=== PATIENT | male | born 1945 | race Caucasian/White ===

== ENCOUNTER → 2016-12-16 | Outpatient (CLI) | payer MEDICARE, BC | LOC: GMAL 17:29 | PROVIDERS: ATTEND Family Medicine | DX: R30.0 Dysuria (principal); M54.08 Panniculitis affecting regions of neck and back, sacral and sacrococcygeal region ==

== ENCOUNTER → 2016-12-18 | Outpatient (CLI) | payer MEDICARE, BC ==
--- NOTE | 2016-12-19 09:00 | NM ---
EXAM DESCRIPTION: NM BONE SCAN WHOLE BODY CLINICAL HISTORY: 71 y/o ,M, bone scan after possible pathologic fracture of the ribs. COMPARISON: None TECHNIQUE: Whole body scintigraphic images were acquired after the IV administration of 28 mCi of technetium 99 M MDP. FINDINGS: Focal uptake noted within the left maxilla. Focal uptake noted within what is likely the anterior 3rd and 7th ribs. Focal uptake noted within the anterior left 10th rib. Abnormal uptake noted within the left hip. Abnormal uptake noted within the distal left medial tibia. Abnormal uptake noted within the lower lumbar spine most pronounced within the posterior elements. IMPRESSION: Areas of abnormal uptake noted as described above. The findings within the ribs can be seen in setting of metastatic disease as they are sporadic and not conforming to atypical fracture pattern. Recommend radiographs of the areas of concern. Electronically signed by: Angel Charlton MD 12/19/2016 08:59
== END | disposition home or self-care (01) ==
LOC: NM 09:39
PROVIDERS: ATTEND Family Medicine
DX: C90.00 Multiple myeloma not having achieved remission (principal); R07.82 Intercostal pain

== ENCOUNTER → 2017-01-14 | Outpatient (CLI) | payer MEDICARE, BC | END | disposition home or self-care (01) | LOC: LAB.O 10:43 | PROVIDERS: ATTEND Internal Medicine Medical Oncology | DX: C90.02 Multiple myeloma in relapse (principal) ==

== ENCOUNTER → 2017-02-16 | Outpatient (CLI) | payer MEDICARE, BC | END | disposition home or self-care (01) | LOC: LAB.O 14:28 | PROVIDERS: ATTEND Internal Medicine Medical Oncology | DX: C90.02 Multiple myeloma in relapse (principal) ==

== ENCOUNTER 2017-02-17 10:09 | Outpatient (CLI) | payer MEDICARE, BC ==
[2017-02-18] MEDS ORDERED: ACETAMINOPHEN 325 MG TAB ONE (09:01)
[2017-02-18] MEDS ORDERED: diphenhydrAMINE HCL 50 MG/ML VIAL ONE (09:01)
[2017-02-18] MEDS ORDERED: SODIUM CHLORIDE 0.9% 500ML 500 ML IVS ONE (09:01)
[2017-02-18 12:02] VITALS: O2SAT 95
[2017-02-18 14:15] VITALS: BP 131/72; TEMP 98.5
== END 2017-02-18 12:40 | disposition home or self-care (01) ==
LOC: AMB 10:09
PROVIDERS: ATTEND Internal Medicine Medical Oncology
DX: D64.81 Anemia due to antineoplastic chemotherapy (principal)
CPT/HCPCS: 36415; 86922; G0463; P9016

== ENCOUNTER → 2017-03-02 | Day surgery (SDC) | payer MEDICARE, BC | LOC: TXRM 14:03 | PROVIDERS: ATTEND Internal Medicine Medical Oncology | DX: D64.81 Anemia due to antineoplastic chemotherapy (principal); Z53.9 Procedure and treatment not carried out, unspecified reason ==

== ENCOUNTER 2017-03-03 05:34 | Day surgery (SDC) | payer MEDICARE, BC ==
[2017-03-03] MEDS ORDERED: SODIUM CHLORIDE 0.9% 500ML 500 ML ONE (07:29)
[2017-03-03] MEDS ORDERED: diphenhydrAMINE HCL 25 MG CAP ONE (13:11)
[2017-03-03] MEDS ORDERED: ACETAMINOPHEN 325 MG TAB ONE (13:11)
[2017-03-03] MEDS ORDERED: ACETAMINOPHEN 325 MG TAB PO ONE (13:15)
[2017-03-03] MEDS ORDERED: diphenhydrAMINE HCL 25 MG CAP PO ONE (13:16)
[2017-03-03 15:42] VITALS: O2SAT 95
[2017-03-03 16:46] VITALS: BP 111/55; TEMP 98
== END 2017-03-03 17:30 | disposition home or self-care (01) ==
LOC: AMB 05:34 → TXRM 17:30
PROVIDERS: ATTEND Internal Medicine Medical Oncology
DX: D64.81 Anemia due to antineoplastic chemotherapy (principal); C90.00 Multiple myeloma not having achieved remission; I25.10 Atherosclerotic heart disease of native coronary artery without angina pectoris; I10 Essential (primary) hypertension; Z88.8 Allergy status to other drugs, medicaments and biological substances; Z87.891 Personal history of nicotine dependence; Z85.00 Personal history of malignant neoplasm of unspecified digestive organ; Z79.82 Long term (current) use of aspirin; Z79.899 Other long term (current) drug therapy
CPT/HCPCS: 36415; 36430; 86870; 86880; 86922; 86970; G0463; J7040; P9016; Q0163

== ENCOUNTER 2017-03-06 05:55 | Outpatient (CLI) | payer MEDICARE, BC ==
[2017-03-06] MEDS ORDERED: SODIUM CHLORIDE 0.9% 500ML 500 ML ONE (11:14)
[2017-03-06] MEDS ORDERED: ACETAMINOPHEN 325 MG TAB PO ONE (11:45)
[2017-03-06] MEDS ORDERED: diphenhydrAMINE HCL 25 MG CAP PO ONE (11:45)
[2017-03-06] MEDS ORDERED: diphenhydrAMINE HCL 25 MG CAP ONE (11:50)
[2017-03-06] MEDS ORDERED: ACETAMINOPHEN 325 MG TAB ONE (11:50)
[2017-03-06 15:21] VITALS: O2SAT 96
[2017-03-06 16:05] VITALS: BP 147/79; TEMP 98.2
== END 2017-03-06 16:30 | disposition home or self-care (01) ==
LOC: TXRM 05:55 → EDSTATUS 08:00 → TXRM 16:00
PROVIDERS: ATTEND Internal Medicine Medical Oncology
PROC: 30233N1 Transfusion of Nonautologous Red Blood Cells into Peripheral Vein, Percutaneous Approach (ICD-10-PCS; principal; 2017-03-06 08:00)
DX: C90.01 Multiple myeloma in remission (principal); C80.1 Malignant (primary) neoplasm, unspecified; D63.0 Anemia in neoplastic disease
CPT/HCPCS: 36415; 36430; 86850; 86900; 86901; 86922; G0463; J7040; P9016; Q0163

== ENCOUNTER → 2017-03-10 | Outpatient (CLI) | payer MEDICARE, BC ==
--- NOTE | 2017-03-10 16:42 | MRI ---
EXAM DESCRIPTION: Lumbar Spine w/wo Contrast CLINICAL HISTORY: 71 years, Male, MULTIPLE MYELOMA COMPARISON: Bone scan December 18, 2016, MRI July 18, 2016 TECHNIQUE: Multiplanar multi sequence images of the lumbar spine were obtained with and without gadolinium contrast. FINDINGS: There are old L5 and S1 compression fractures with probable augmentation involving at least the L5 body. No additional fracture or subluxation is seen. There is no bone marrow edema. The conus lies posterior to the L1 body, and the cauda equina is unremarkable. There are large bilateral renal cysts only partially visualized. The paraspinal soft tissues are unremarkable. At L1-2, there is bilateral facet joint degeneration without ligament flavum thickening, disc bulging or stenosis. At L2-3, there is only mild concentric disc bulging with mild bilateral facet joint degeneration resulting in slight bilateral neuroforaminal stenosis. No definite nerve root abutment. At L3-4, there is mild concentric disc bulging and bilateral facet joint degeneration and ligamentum flavum thickening resulting in mild central canal and moderate bilateral neuroforaminal stenosis. Disc material approaches but does not definitely abut the exiting L3 nerve roots bilaterally. At L4-5, there is concentric disc bulging with bilateral facet joint degeneration and ligament flavum thickening resulting in moderate central canal and advanced bilateral neuroforaminal stenosis. Disc material approaches and possibly abuts the exiting L4 nerve roots bilaterally. At L5-S1, there is concentric disc bulging with bilateral facet joint degeneration resulting in severe bilateral neuroforaminal stenosis and abutment of the exiting L5 nerve roots bilaterally. Postcontrast images show a Schmorl's node in the inferior endplate of L3 peripheral enhancement. No additional enhancing bone lesion is identified. IMPRESSION: Moderate to advanced degenerative change at multiple levels in the lumbar spine including central canal stenosis, neuroforaminal stenosis and nerve root abutment as detailed above. Overall, findings are worse at L4-5 and L5-S1. Old L5 and S1 compression fractures. Large bilateral renal cysts only partially visualized. Electronically signed by: Santhosh Ro MD 03/10/2017 4:41 PM CDT
--- NOTE | 2017-03-10 16:58 | MRI ---
EXAM DESCRIPTION: Pelvis w/wo Contrast CLINICAL HISTORY: 71 years Male, MULTIPLE MYELOMA COMPARISON: None. TECHNIQUE: Multiplanar multi sequence images of the pelvis were obtained with and without contrast. FINDINGS: There is abnormal T1 and T2 bone marrow signal involving the majority of the sacrum and visualized portions of the iliac bones bilaterally. Postcontrast imaging shows heterogeneous enhancement in the same locations which could represent either neoplasm or marrow reconversion. Edema is noted at the same locations in the sacrum and bilateral iliac bones on inversion recovery imaging. There is a small defect in the anterior cortex of the left sacral wing with some enhancement in the pelvic soft tissues anterior to the defect suspicious for neoplasm with soft tissue extension. Irregular areas of decreased T1 and decreased T2 signal in the S1 body and right sacral wing are likely related to previous sacral plasty. Is a tiny matter free fluid in the pelvis, nonspecific. Is an old L5 compression fracture with vertebral plasty at the L5 level. There is a displaced S1 body fracture which is likely not acute. IMPRESSION: Abnormal, heterogeneous signal throughout the sacrum and bilateral iliac bones with enhancement and edema at the same locations, all highly suspicious for bony metastatic disease. A cortical defect anteriorly in the left sacral wing with overlying soft tissue enhancement suggests soft tissue extension. CT may be helpful for confirmation. Old L5 and S1 vertebral body fractures with vertebroplasty and sacroplasty. Electronically signed by: Santhosh Ro MD 03/10/2017 4:56 PM CDT
== END | disposition home or self-care (01) ==
LOC: MRI 12:44
PROVIDERS: ATTEND Radiology Radiation Oncology
DX: C90.01 Multiple myeloma in remission (principal)

== ENCOUNTER 2017-03-21 19:37 | Emergency (ER) | payer MEDICARE, BC ==
--- NOTE | 2017-03-21 20:10 | ED.PDOC ---
History of Present Illness - General Chief Complaint: Neuro Symptoms/Deficits Stated Complaint: general weakness, possible siezure Time Seen by Provider: 03/21/17 20:08 Source: patient, family Exam Limitations: no limitations - History of Present Illness Initial Comments: Chester Gay 71 y/o male with history of multiple myeloma undergoing chemotherapy Kyprolis the last 2 days brought by family because of weakness,low grade fever and noted hands were flapping had blank stare for about 20 minutes loss of bladder control tonight.He was started on levaquin today. Timing/Duration: 4-6 hours Severity: moderate Improving Factors: nothing Worsening Factors: nothing Associated Symptoms: loss of appetite, nausea/vomiting - x 1 Allergies/Adverse Reactions: Allergies CONTRAST DYE Allergy (Mild, Uncoded 03/21/17 20:09) Other Hacking cough, had to have a shot of benadryl Home Medications: Ambulatory Orders Tamsulosin [Flomax] 0.4 mg PO QD 11/15/12 Trazodone HCl 50 - 100 mg PO HS 04/04/13 Acyclovir [Zovirax] 400 mg PO BID 08/21/14 DULoxetine HCL [Cymbalta] 60 mg PO DAILY 08/21/14 Isosorbide Mononitrate [Imdur] 30 mg PO DAILY 08/21/14 Calcitonin ([place]) [Fortical] 200 unit PO DAILY 07/22/15 Atorvastatin Calcium [Lipitor] 80 mg PO BEDTIME 08/26/15 Daratumumab [Darzalex] 100 mg IV MONTHLY 03/21/17 Dexamethasone 4 mg PO DAILY 03/21/17 Gabapentin 300 mg PO TID 03/21/17 Levothyroxine Sodium 50 mcg PO DAILY 03/21/17 Montelukast Sodium 10 mg PO DAILY 03/21/17 Morphine Sulfate [Morphine Sulfate ER] 60 mg PO PRN PRN 03/21/17 Potassium Chloride Microencaps [Klor-Con M20] 20 meq PO DAILY 03/21/17 Potassium Chloride [Klor-Con] 03/21/17 Tbo-Filgrastim [Granix] 300 mcg SC DAILY 03/21/17 Zoledronic Acid 4 mg IV DAILY 03/21/17 Review of Systems - Review of Systems Constitutional: States: weakness EENTM: States: no symptoms reported Respiratory: States: no symptoms reported Cardiology: States: no symptoms reported Gastrointestinal/Abdominal: States: no symptoms reported Genitourinary: States: no symptoms reported Musculoskeletal: States: no symptoms reported Skin: States: no symptoms reported Neurological: States: seizure - like activity Past Medical History (General) - Patient Medical History Hx Seizures: No Hx Stroke: No Hx Asthma: No Hx of COPD: No Hx Cardiac Disorders: Yes - R CEA; cardiac stent Hx Congestive Heart Failure: No Hx Pacemaker: No Hx Hypertension: Yes Hx Diabetes: No Hx Gastroesophageal Reflux: Yes Hx Renal Disease: Yes - stones Hx Cancer: Yes - multiple mylomas Hx of HIV: Yes Hx MRSA: No MRSA Source:: nasal Surgical History: other - stem cell transplant,cardiac stent,cataract ,back - Vaccination History Hx Tetanus, Diphtheria Vaccination: Yes - 2013 Hx Influenza Vaccination: Yes Hx Pneumococcal Vaccination: Yes - Social History Hx Tobacco Use: Yes Hx Alcohol Use: Yes - several months ago Hx Substance Use: No Hx Substance Use Treatment: No Hx Depression: No Hx Physical Abuse: No Hx Emotional Abuse: No - Activities of Daily Living Patient Lives Alone: No - family Grooming Ability: Independent Eating (Feeding) Ability: Independent Toileting Ability: Independent - Female History Patient : No Family Medical History - Family History Father Family History: Unknown Living Status: Unknown Hx Family Hypertension: Yes Hx Family Cancer: Yes - stomach CA Hx Family;Other: Parkinsons disease- mom;CAD-brother Physical Exam - Physical Exam General Appearance: No apparent distress, Ill Appearing Eye Exam: bilateral normal Ears, Nose, Throat: hearing grossly normal, normal ENT inspection, normal pharynx Neck: non-tender, full range of motion Respiratory: chest non-tender, lungs clear, normal breath sounds, no respiratory distress Cardiovascular/Chest: normal peripheral pulses, regular rate, rhythm, systolic murmur - 2nd ics bilateral Peripheral Pulses: radial,right: 2+, radial,left: 2+ Gastrointestinal/Abdominal: normal bowel sounds, non tender, soft, no organomegaly, no pulsatile mass Back Exam: normal inspection, no CVA tenderness Extremity: normal range of motion, non-tender, normal inspection Neurologic: no motor/sensory deficits, alert, normal mood/affect, oriented x 3 Skin Exam: normal color, warm/dry Lymphatic: no adenopathy Progress - Results/Orders Results/Orders: Vital Signs - 8 hr 03/21/17 03/21/17 03/21/17 19:58 20:57 21:25 Temperature 100.2 F H 99.5 F 97.8 F Pulse Rate [ 94 H 82 96 H left] Respiratory 18 18 18 Rate Blood Pressure 113/71 105/66 125/77 [left] O2 Sat by Pulse 85 L 97 97 Oximetry 03/21/17 22:39 Temperature Pulse Rate [ 75 left] Respiratory 16 Rate Blood Pressure 118/76 [left] O2 Sat by Pulse 97 Oximetry 03/21/17 20:14 EKG Assessment ONCE 03/21/17 20:17 URINALYSIS Stat Laboratory Results WBC 2.4 K/mm3 (4.8-10.8) L* 03/21/17 20:13 RBC 2.79 M/mm3 (4.70-6.10) L 03/21/17 20:13 Hgb 7.8 gm/dL (14.0-18.0) L* 03/21/17 20:13 Hct 24.8 % (42.0-52.0) L 03/21/17 20:13 MCV 88.7 fl (80.0-94.0) 03/21/17 20:13 MCH 27.9 pg (27.0-31.0) 03/21/17 20:13 MCHC 31.5 g/dL (33.0-37.0) L 03/21/17 20:13 RDW 17.5 % (11.5-14.5) H 03/21/17 20:13 Plt Count 38 K/mm3 (130-400) L* 03/21/17 20:13 MPV 7.1 fl (7.40-10.4) L 03/21/17 20:13 Absolute Neuts (auto) 1.90 K/uL (1.8-6.8) 03/21/17 20:13 Absolute Lymphs (auto) 0.20 K/uL (1.0-3.4) L 03/21/17 20:13 Absolute Monos (auto) 0.30 K/uL (0.2-0.8) 03/21/17 20:13 Absolute Eos (auto) 0.00 K/uL (0.0-0.4) 03/21/17 20:13 Absolute Basos (auto) 0.00 K/uL (0.0-0.1) 03/21/17 20:13 Neutrophils % 78.8 % (42.0-78.0) H 03/21/17 20:13 Lymphocytes % 9.3 % (20.0-50.0) L 03/21/17 20:13 Monocytes % 11.6 % (2.0-9.0) H 03/21/17 20:13 Eosinophils % 0.0 % (1.0-5.0) L 03/21/17 20:13 Basophils % 0.3 % (0.0-2.0) 03/21/17 20:13 Sodium 131 mmol/L (135-145) L 03/21/17 20:13 Potassium 5.2 mmol/L (3.6-5.0) H 03/21/17 20:13 Chloride 100 mmol/L (101-111) L 03/21/17 20:13 Carbon Dioxide 22 mmol/L (21-31) 03/21/17 20:13 Anion Gap 14.2 (12-18) 03/21/17 20:13 BUN 34 mg/dL (7-18) H 03/21/17 20:13 Creatinine 2.00 mg/dL (0.6-1.3) H 03/21/17 20:13 BUN/Creatinine Ratio 17.0 (10-20) 03/21/17 20:13 Random Glucose 147 mg/dL (70-105) H 03/21/17 20:13 Serum Osmolality 273.0 mOsm/L (275-295) L 03/21/17 20:13 Uric Acid 7.2 mg/dL (2.6-7.2) 03/21/17 20:13 Calcium 9.2 mg/dL (8.4-10.2) 03/21/17 20:13 Total Bilirubin 0.5 mg/dL (0.2-1.0) 03/21/17 20:13 AST 384 IU/L (10-42) H 03/21/17 20:13 ALT 447 IU/L (10-60) H 03/21/17 20:13 Alkaline Phosphatase 90 IU/L (42-121) 03/21/17 20:13 Creatine Kinase 30 IU/L (38-174) L 03/21/17 20:13 CK-MB (CK-2) 5.5 ng/mL (0.0-4.4) H* 03/21/17 20:13 CK-MB (CK-2) % Not Reportable 03/21/17 20:13 Troponin I 0.78 ng/mL (0.01-0.05) H* 03/21/17 20:13 Serum Total Protein 7.6 gm/dL (6.4-8.2) 03/21/17 20:13 Albumin 3.1 g/dl (3.2-5.5) L 03/21/17 20:13 Globulin 4.5 gm/dL (2.3-3.5) H 03/21/17 20:13 Albumin/Globulin Ratio 0.7 (1.1-1.9) L 03/21/17 20:13 - EKG/XRAY/CT EKG: ST depression - inferior leads Comments: heart rate-83 XRAY: chest - no acute abnormality noted Departure - Departure Clinical Impression: NSTEMI (non-ST elevation myocardial infarction), Anemia due to chemotherapy, Renal failure (ARF), acute on chronic, Chemotherapy-induced thrombocytopenia, Multiple myeloma in relapse, Abnormal liver enzymes, Leukopenia due to antineoplastic chemotherapy Time of Disposition: 01:23 - Transfer to [facility] - Disposition: Transfer to Hospital Condition: Fair Departure Forms: Patient Portal Self Enrollment Referrals: Krishna White III, MD [Primary Care Provider] - 1-2 Weeks Home Medications: Ambulatory Orders Tamsulosin [Flomax] 0.4 mg PO QD 11/15/12 Trazodone HCl 50 - 100 mg PO HS 04/04/13 Acyclovir [Zovirax] 400 mg PO BID 08/21/14 DULoxetine HCL [Cymbalta] 60 mg PO DAILY 08/21/14 Isosorbide Mononitrate [Imdur] 30 mg PO DAILY 08/21/14 Calcitonin ([place]) [Fortical] 200 unit PO DAILY 07/22/15 Atorvastatin Calcium [Lipitor] 80 mg PO BEDTIME 08/26/15 Daratumumab [Darzalex] 100 mg IV MONTHLY 03/21/17 Dexamethasone 4 mg PO DAILY 03/21/17 Gabapentin 300 mg PO TID 03/21/17 Levothyroxine Sodium 50 mcg PO DAILY 03/21/17 Montelukast Sodium 10 mg PO DAILY 03/21/17 Morphine Sulfate [Morphine Sulfate ER] 60 mg PO PRN PRN 03/21/17 Potassium Chloride Microencaps [Klor-Con M20] 20 meq PO DAILY 03/21/17 Potassium Chloride [Klor-Con] 03/21/17 Tbo-Filgrastim [Granix] 300 mcg SC DAILY 03/21/17 Zoledronic Acid 4 mg IV DAILY 03/21/17
--- NOTE | 2017-03-21 20:32 | RAD ---
EXAM: Single view chest. INDICATION: Chest pain. COMPARISON: Chest x-ray: 05/21/2016. FINDINGS: Cardiac silhouette: Unremarkable. Nga: Unremarkable. Lobar consolidation: None. Pleural effusion: None. Pneumothorax: None. Other: The right chest wall port terminates within the SVC. Bones: An old healed right-sided rib fracture is again noted. Other: None. IMPRESSION: 1. No acute cardiopulmonary process. Electronically signed by: Roberto Lawrence MD 03/21/2017 8:32 PM CDT
[2017-03-21] MEDS ORDERED: SODIUM CHLORIDE 0.9% 1000ML 1,000 ML IVS PRN (22:55)
[2017-03-22 03:09] VITALS: BP 160/80; TEMP 96.6; O2SAT 98
== END 2017-03-22 02:25 | disposition short-term general hospital (02) ==
LOC: ER 19:37
DX: I21.4 Non-ST elevation (NSTEMI) myocardial infarction (principal); C90.02 Multiple myeloma in relapse; N17.9 Acute kidney failure, unspecified; D64.81 Anemia due to antineoplastic chemotherapy; D69.59 Other secondary thrombocytopenia; T45.1X5A Adverse effect of antineoplastic and immunosuppressive drugs, initial encounter; D70.1 Agranulocytosis secondary to cancer chemotherapy; B20 Human immunodeficiency virus [HIV] disease; R74.8 Abnormal levels of other serum enzymes; Z91.041 Radiographic dye allergy status; Z79.899 Other long term (current) drug therapy; K21.9 Gastro-esophageal reflux disease without esophagitis; Z98.61 Coronary angioplasty status; Z87.891 Personal history of nicotine dependence
CPT/HCPCS: 71010; 80053; 82550; 82553; 84484; 84550; 85025; 93005; J7030

== ENCOUNTER → 2017-04-09 | Outpatient (CLI) | payer MEDICARE, BC | END | disposition home or self-care (01) | LOC: LAB.O 15:16 | PROVIDERS: ATTEND Internal Medicine Medical Oncology | DX: C90.02 Multiple myeloma in relapse (principal) ==

== ENCOUNTER 2017-04-11 10:04 | Emergency (ER) | payer MEDICARE, BC ==
[2017-04-11] MEDS ORDERED: PIPERACILLIN/TAZOBACTAM 3.375 GM in SODIUM CHLORIDE 0.9% 100ML 100 ML IVPB ONE (10:11)
[2017-04-11] MEDS ORDERED: SODIUM CHLORIDE 0.9% 1000ML 1,000 ML IVS ONE (10:15)
[2017-04-11] MEDS ORDERED: SODIUM CHLORIDE 0.9% 100ML 100 ML IVPB ONE (10:17)
[2017-04-11] MEDS ORDERED: PIPERACILLIN/TAZOBACTAM 3.375 GM VIAL IVPB ONE (10:17)
--- NOTE | 2017-04-11 10:59 | CT ---
PROCEDURE: Head HISTORY: altered LOC. History of multiple myeloma Indication: Same as above Comparison: None Technique: CT of the head was done without intravenous contrast was done in axial plane only This exam was performed according to our departmental dose-optimization program, which includes automated exposure control, adjustment of the mA and/or KV according to the patient's size and/or use of iterative reconstruction technique. FINDINGS: There is no intracranial hemorrhage, midline shift mass effect or acute focal infarct. If clinical concern exists regarding an acute ischemic/vascular pathology being responsible for patient's symptomatology, an MRI of the brain is more sensitive than the current study, in ruling out such a possibility. In addition MRI is more sensitive than the current study in evaluation of metastatic disease to the brain There is good enamorado/white matter differentiation. The ventricular system is normal. The mastoid air cells are unremarkable . The paranasal sinuses show underlying changes of mild chronic sinusitis . There is no visualization of acute fractures involving the calvarium or the skull base. There is no visualization of any lytic or sclerotic lesions involving the calvarium or the skull base IMPRESSION: There is no acute intracranial abnormality. If clinical concern exists regarding an acute ischemic/vascular pathology being responsible for patient's symptomatology, an MRI of the brain is more sensitive than the current study, in ruling out such a possibility. In addition MRI is more sensitive than the current study in evaluation of metastatic disease to the brain Electronically signed by: Kaiden Herzog MD 04/11/2017 10:59 AM CDT Workstation: [id number]
--- NOTE | 2017-04-11 11:07 | RAD ---
PROCEDURE: XR CHEST 1 VIEW HISTORY: neutropenic fever COMPARISON: 03/21/2017 TECHNIQUE: Single projection of the chest was done. FINDINGS: There is no interval change in the position of the right-sided central line. There is presence of mild infiltrate/atelectasis in the right lung base . There are no pneumothoraces or pleural effusions. The pulmonary vascularity is normal. The cardiomediastinal silhouette is stable. IMPRESSION: There is presence of mild infiltrate/atelectasis in the right lung base . Electronically signed by: Kaiden Herzog MD 04/11/2017 11:06 AM CDT Workstation: [id number]
--- NOTE | 2017-04-11 11:39 | ED.PDOC ---
History of Present Illness - General Chief Complaint: Fever Stated Complaint: Fever, mild confusion Time Seen by Provider: 04/11/17 10:10 Source: patient, RN notes reviewed, Vital Signs reviewed, family, EMS Exam Limitations: no limitations Additional Information: Fever and cough since yesterday. Pt without complaints once given 2 L NC and fever improved s/p Tylenol and IV ANtibiotics. Pt's would like him transferred to [facility] for inpatient management given his history of Oncology services at [facility]. 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 Associated Symptoms: confusion - per spouse, cough Review of Systems - Review of Systems Constitutional: States: see HPI, fever EENTM: States: other - nose bleed episode Respiratory: States: see HPI, cough Cardiology: States: no symptoms reported Gastrointestinal/Abdominal: States: no symptoms reported Genitourinary: States: no symptoms reported Musculoskeletal: States: no symptoms reported Skin: States: no symptoms reported Neurological: States: no symptoms reported Endocrine: States: no symptoms reported Hematologic/Lymphatic: States: see HPI, anemia, easy bleeding Past Medical History (General) - Patient Medical History Hx Seizures: No Hx Stroke: No Hx Asthma: No Hx of COPD: No Hx Cardiac Disorders: Yes - Irregular rhythm, high cholesterol Hx Congestive Heart Failure: No Hx Pacemaker: No Hx Hypertension: Yes Hx Thyroid Disease: Yes Hx Diabetes: No Hx Gastroesophageal Reflux: Yes Hx Renal Disease: Yes - stones Hx Cancer: Yes - Multiple myeloma Hx of HIV: Yes Hx MRSA: No MRSA Source:: nasal Surgical History: tonsillectomy - Vaccination History Hx Tetanus, Diphtheria Vaccination: Yes - 2013 Hx Influenza Vaccination: Yes - 2015 Hx Pneumococcal Vaccination: Yes - Social History Hx Tobacco Use: Yes - Quit 1970 Hx Alcohol Use: Yes - several months ago Hx Substance Use: No Hx Substance Use Treatment: No Hx Depression: No Hx Physical Abuse: No Hx Emotional Abuse: No - Female History Patient : No Family Medical History - Family History Father Family History: Unknown Living Status: Unknown Hx Family Hypertension: Yes Hx Family Cancer: Yes - stomach CA Hx Family;Other: Parkinson's disease- mom;CAD-brother Physical Exam - Physical Exam General Appearance: Alert, Comfortable, No apparent distress Eye Exam: bilateral normal ENT Exam: normal ENT inspection, pharynx normal Neck: non-tender, full range of motion, supple, normal inspection Respiratory: no respiratory distress - , just occasional cough, no accessory muscle use, rales - at bilateral bases Cardiovascular/Chest: normal peripheral pulses, regular rate, rhythm, no edema, no murmur Gastrointestinal/Abdominal: non tender, soft Extremity: normal range of motion, non-tender, normal inspection Neurologic: pump attendant II-XII nml as tested, no motor/sensory deficits, alert, normal mood/affect, oriented x 3 Skin Exam: normal color Lymphatic: no adenopathy Progress - Progress Progress: 04/11/17 12:42 Pt with fever, cough since yesterday. Pt's called Oncologist on-call who recommended Tylenol and Levaquin. Fever persisted and concerned about possible change in mental status. Therefore 911 initiated and patient brought to [place] [facility]. Pt without signs of sepsis. Pt with PNA. Stable with supportive care - 2 L NC oxygen and Antibiotics. Pt's requesting transfer to [place]. I spoke with on-call Oncologist covering for Dr. Brian Loza at [phone] who stated Pt could probably be treated here at [facility]. Pt's would still like patient transferred to [facility]. 04/11/17 13:34 Case discussed with ER Attending Dr. Blanchard at [facility] who accepted transfer at 1254. - Results/Orders Results/Orders: 04/11/17 10:13 URINALYSIS Stat 04/11/17 10:29 BLOOD CULTURE Stat Laboratory Results - last 24 hr 04/11/17 04/11/17 04/11/17 10:29 10:29 10:29 WBC 4.2 L RBC 2.60 L D Hgb 7.4 L* D Hct 22.7 L D MCV 87.5 MCH 28.4 MCHC 32.7 L RDW 19.4 H Plt Count 24 L* D MPV 8.2 Absolute Neuts (auto) 3.90 Absolute Lymphs (auto) 0.10 L Absolute Monos (auto) 0.10 L Absolute Eos (auto) 0.00 Absolute Basos (auto) 0.00 Neutrophils % 94.4 H Lymphocytes % 2.1 L Monocytes % 3.1 Eosinophils % 0.3 L Basophils % 0.1 Sodium 134 L Potassium 3.9 Chloride 100 L Carbon Dioxide 30 Anion Gap 7.9 L BUN 19 H Creatinine 1.15 BUN/Creatinine Ratio 16.5 Random Glucose 110 H Serum Osmolality 271.1 L Lactic Acid 0.7 Calcium 8.7 Phosphorus 2.2 L Magnesium 1.6 L Total Bilirubin 0.9 AST 17 ALT 27 Alkaline Phosphatase 51 Serum Total Protein 5.0 L Albumin 2.6 L Globulin 2.4 Albumin/Globulin Ratio 1.1 - EKG/XRAY/CT XRAY: chest - mild infiltrate vs atelectasis right base CT: Head - no acute changes Departure - Departure Clinical Impression: Anemia associated with chemotherapy, Multiple myeloma in relapse, Chemotherapy induced thrombocytopenia Pneumonia Qualifiers: Pneumonia type: due to unspecified organism Laterality: right Lung location: unspecified part of lung Qualified Code(s): J18.9 - Pneumonia, unspecified organism Time of Disposition: 13:00 Disposition: Transfer to Hospital Condition: Fair Departure Forms: ED Discharge - Pt. Copy, Patient Portal Self Enrollment Referrals: Krishna White III, MD [Primary Care Provider] - 1-5 Days Home Medications: Ambulatory Orders Tamsulosin [Flomax] 0.4 mg PO QD 11/15/12 Trazodone HCl 50 - 100 mg PO HS 04/04/13 Acyclovir [Zovirax] 400 mg PO BID 08/21/14 DULoxetine HCL [Cymbalta] 60 mg PO DAILY 08/21/14 Isosorbide Mononitrate [Imdur] 30 mg PO DAILY 08/21/14 Calcitonin ([place]) [Fortical] 200 unit PO DAILY 07/22/15 Atorvastatin Calcium [Lipitor] 80 mg PO BEDTIME 08/26/15 Daratumumab [Darzalex] 100 mg IV MONTHLY 03/21/17 Dexamethasone 4 mg PO DAILY 03/21/17 Gabapentin 300 mg PO TID 03/21/17 Levothyroxine Sodium 50 mcg PO DAILY 03/21/17 Montelukast Sodium 10 mg PO DAILY 03/21/17 Morphine Sulfate [Morphine Sulfate ER] 60 mg PO PRN PRN 03/21/17 Potassium Chloride Microencaps [Klor-Con M20] 20 meq PO DAILY 03/21/17 Potassium Chloride [Klor-Con] 03/21/17 Tbo-Filgrastim [Granix] 300 mcg SC DAILY 03/21/17 Zoledronic Acid 4 mg IV DAILY 03/21/17 Transfer to Outside Facility - Transfer Information Accepting Provider:: Dr. Blanchard Accepting Facility: [facility] Reason for Transfer: patient's family request
[2017-04-11 15:50] VITALS: BP 141/66; TEMP 99.5; O2SAT 96
== END 2017-04-11 14:20 | disposition short-term general hospital (02) ==
LOC: ER 10:04
DX: C90.00 Multiple myeloma not having achieved remission (principal); D69.59 Other secondary thrombocytopenia; D64.81 Anemia due to antineoplastic chemotherapy; T45.1X5A Adverse effect of antineoplastic and immunosuppressive drugs, initial encounter; J18.9 Pneumonia, unspecified organism; Z87.891 Personal history of nicotine dependence; I10 Essential (primary) hypertension; E07.9 Disorder of thyroid, unspecified; K21.9 Gastro-esophageal reflux disease without esophagitis; E78.00 Pure hypercholesterolemia, unspecified; I49.9 Cardiac arrhythmia, unspecified; B20 Human immunodeficiency virus [HIV] disease
CPT/HCPCS: 36415; 70450; 71010; 80053; 83605; 83735; 84100; 85025; 87040; J2543; J7030; J7050

== ENCOUNTER 2017-04-20 12:39 | Emergency (ER) | payer MEDICARE, BC ==
[2017-04-20 13:16] VITALS: TEMP 97.8; O2SAT 99
--- NOTE | 2017-04-20 13:51 | RAD ---
EXAM DESCRIPTION: Chest,1 View CLINICAL HISTORY: 71 years Male, near syncope COMPARISON: April 11, 2017 TECHNIQUE: AP portable chest. FINDINGS: A single view of the chest demonstrates minor atelectasis in the right infrahilar region and a chemotherapy port remaining in satisfactory position. Catheter tip is in the distal superior vena cava. Heart size is normal with tortuous aorta and normal vascularity, allowing for portable technique no dense infiltrates are noted. IMPRESSION: Or platelike atelectasis in the right infrahilar region and to a lesser extent on the left. Stable position of right subclavian chemotherapy port. Electronically signed by: Sanchez Casanova MD 04/20/2017 1:50 PM CDT
--- NOTE | 2017-04-20 14:51 | ED.PDOC ---
History of Present Illness - General Chief Complaint: General Stated Complaint: SYNCOPE AT HOME, ANEMIA, CANCER Time Seen by Provider: 04/20/17 12:46 Source: patient Exam Limitations: no limitations - History of Present Illness Initial Comments: the patient is a 71-year-old male presenting to the emergency room secondary to near syncopal episodes. This is not a new problem. He does have known severe aortic stenosis and is awaiting a valve replacement. The patient was actually supposed to come up. Today to have a CBC done to see if he needs another unit of packed red blood cells. He has received frequent red blood cell transfusions in the past. Due to his dizziness and weakness the was concerned that she would not be able to bring him up here safely for the blood draw, so EMS was called. He is actually feeling in his normal state of health. He does get dizzy and weak when he stands for any period of time and also when he goes to the bathroom. he tilt positive here today which is not surprising. he just got out of the hospital 3 days ago with medication adjustments for his blood pressure management. no fevers. No chest pains. No altered mental status. No palpitations. Timing/Duration: momentarily Severity: moderate Improving Factors: immobilization Worsening Factors: movement Associated Symptoms: malaise, syncope, weakness Allergies/Adverse Reactions: Allergies CONTRAST DYE Allergy (Mild, Uncoded 04/11/17 10:20) Other Hacking cough, had to have a shot of benadryl Home Medications: Ambulatory Orders Tamsulosin [Flomax] 0.4 mg PO QD 11/15/12 Trazodone HCl 50 - 100 mg PO HS 04/04/13 Acyclovir [Zovirax] 400 mg PO BID 08/21/14 DULoxetine HCL [Cymbalta] 60 mg PO DAILY 08/21/14 Isosorbide Mononitrate [Imdur] 30 mg PO DAILY 08/21/14 Calcitonin ([place]) [Fortical] 200 unit PO DAILY 07/22/15 Atorvastatin Calcium [Lipitor] 80 mg PO BEDTIME 08/26/15 Dexamethasone 4 mg PO DAILY 03/21/17 Gabapentin 300 mg PO TID 03/21/17 Levothyroxine Sodium 50 mcg PO DAILY 03/21/17 Tbo-Filgrastim [Granix] 300 mcg SC DAILY 03/21/17 Zoledronic Acid 4 mg IV DAILY 03/21/17 Albuterol Sulfate Nebs [Proventil Nebs] 2.5 mg INH PRN PRN 04/11/17 Calcium Carbonate-Cholecalcife [Caltrate 600+D] 1 tab PO BEDTIME 04/11/17 Cholecalciferol [Eql Vitamin D3] 1,000 unit PO DAILY 04/11/17 Clonidine HCl 0.1 mg PO TID 04/11/17 Cyanocobalamin [Vitamin B-12] 1,000 mcg SL DAILY 04/11/17 Furosemide 20 mg PO DAILY 04/11/17 Isosorbide Mononitrate [Isosorbide Mononitrate ER] 30 mg PO DAILY 04/11/17 Magnesium Oxide (mg Supplement [Magnesium Oxide] 400 mg PO DAILY 04/11/17 hydrALAZINE HCl [(None)] 25 mg PO TID 04/11/17 Doxycycline (Monohydrate) [Doxycycline Monohydrate] 100 mg PO 04/20/17 Hydrocortisone 25 mg Supp [Anusol-HC Suppository] 04/20/17 Prednisone [Deltasone] 20 mg PO 04/20/17 Review of Systems - Review of Systems Constitutional: States: malaise, weakness EENTM: States: no symptoms reported Respiratory: States: no symptoms reported, short of breath - with activity Cardiology: States: syncope - near syncope Gastrointestinal/Abdominal: States: no symptoms reported Genitourinary: States: no symptoms reported Musculoskeletal: States: no symptoms reported Skin: States: no symptoms reported Neurological: States: other - dizziness Endocrine: States: no symptoms reported All other Systems: No Change from Baseline Past Medical History (General) - Patient Medical History Hx Seizures: No Hx Stroke: No Hx Dementia: No Hx Asthma: No Hx of COPD: No Hx Cardiac Disorders: Yes Hx Congestive Heart Failure: No Hx Pacemaker: No Hx Hypertension: Yes Hx Thyroid Disease: No Hx Diabetes: No Hx Gastroesophageal Reflux: No Hx Renal Disease: No Hx Cancer: Yes - MULTIPLE MYELOMA Hx of HIV: No Hx Hepatitis C: No Hx MRSA: No MRSA Source:: nasal - Vaccination History Hx Tetanus, Diphtheria Vaccination: Yes - 2014 Hx Influenza Vaccination: Yes Hx Pneumococcal Vaccination: Yes Immunizations Up to Date: Yes - Social History Hx Tobacco Use: No Hx Chewing Tobacco Use: No Hx Alcohol Use: No Hx Substance Use: No Hx Substance Use Treatment: No Hx Depression: No Feels Threatened In Home Enviroment: No Feels Threatened In a Relationship: No Hx Physical Abuse: No Hx Emotional Abuse: No Hx Suspected Abuse: No - Activities of Daily Living Jail/Assisted Living (if applicable):: [facility] - Female History Patient is a Female of Child Bearing Age (10 -59 yrs old): No Patient : No Family Medical History - Family History Father Family History: Unknown Living Status: Unknown Hx Family Hypertension: Yes Hx Family Cancer: Yes - stomach CA Hx Family;Other: Parkinson's disease- mom;CAD-brother Physical Exam - Physical Exam General Appearance: Alert, Comfortable, No apparent distress Eye Exam: bilateral normal Ears, Nose, Throat: normal ENT inspection, normal pharynx Neck: full range of motion, supple, normal inspection Respiratory: chest non-tender, lungs clear, normal breath sounds, no respiratory distress, no accessory muscle use Cardiovascular/Chest: normal peripheral pulses, regular rate, rhythm, no edema, other - murmur of aortic stenosisis heard Peripheral Pulses: radial,right: 2+, radial,left: 2+, dorsalis pedis,right: 2+, dorsalis pedis,left: 2+, posterior tibialis,right: 2+, posterior tibialis,left: 2+ Gastrointestinal/Abdominal: non tender, soft Rectal Exam: deferred Back Exam: normal inspection, no CVA tenderness, no vertebral tenderness Extremity: normal range of motion, non-tender, normal inspection, no pedal edema , normal capillary refill Neurologic: alert, normal mood/affect, oriented x 3 Skin Exam: pallor Comments: Vital Signs - 24 hr 04/20/17 04/20/17 04/20/17 13:08 13:30 13:32 Temperature 97.8 F Pulse Rate [ 60 64 76 Left Radial] Respiratory 18 Rate Blood Pressure 124/66 124/72 88/50 [Left Arm] O2 Sat by Pulse 99 Oximetry Progress - Progress Progress: 04/20/17 14:55 the patient is a 71-year-old male presenting to the emergency room secondary to near syncopal episodes and the need for a hemoglobin check. The near syncopal episodes are undoubtedly due to aortic stenosis. These will continue until he gets the valve fixed. He has been instructed to sit up slowly and stand up slowly and hold onto things so that he does not pass completely out. He may need to obtain a wheelchair for the next few weeks in order to avoid standing. I believe his fluid status is as ideal as it can be at this time. He is not receiving IV fluids and we're not changing his diuretics at this time. Hemoglobin is adequate today. He needs to keep follow- up with his oncologist tomorrow for further management. ER warnings were given for any acute worsening. Laboratory Tests 04/20/17 04/20/17 04/20/17 13:00 13:00 13:00 WBC 5.1 RBC 3.02 L Hgb 8.6 L Hct 26.4 L MCV 87.3 MCH 28.4 MCHC 32.6 L RDW 19.2 H Plt Count 32 L* MPV 8.3 Absolute Neuts (auto) 4.70 Absolute Lymphs (auto) 0.20 L Absolute Monos (auto) 0.20 Absolute Eos (auto) 0.00 Absolute Basos (auto) 0.00 Neutrophils % 92.4 H Lymphocytes % 4.3 L Monocytes % 3.1 Eosinophils % 0.1 L Basophils % 0.1 Normal RBC Morphology Plts roberto decreased PT 12.8 H INR 1.130 PTT (SP) 25.4 Sodium Potassium Chloride Carbon Dioxide Anion Gap BUN Creatinine BUN/Creatinine Ratio Random Glucose Serum Osmolality Calcium Total Bilirubin AST ALT Alkaline Phosphatase Creatine Kinase 28 L CK-MB (CK-2) 5.1 H* CK-MB (CK-2) % 18.21 H Troponin I 0.08 H* B-Natriuretic Peptide 1360.0 H* Serum Total Protein Albumin Globulin Albumin/Globulin Ratio 04/20/17 13:00 WBC RBC Hgb Hct MCV MCH MCHC RDW Plt Count MPV Absolute Neuts (auto) Absolute Lymphs (auto) Absolute Monos (auto) Absolute Eos (auto) Absolute Basos (auto) Neutrophils % Lymphocytes % Monocytes % Eosinophils % Basophils % Normal RBC Morphology PT INR PTT (SP) Sodium 137 Potassium 3.6 Chloride 100 L Carbon Dioxide 31 Anion Gap 9.6 L BUN 25 H Creatinine 0.83 BUN/Creatinine Ratio 30.1 H Random Glucose 139 H Serum Osmolality 280.5 Calcium 8.4 Total Bilirubin 0.7 AST 19 ALT 46 Alkaline Phosphatase 64 Creatine Kinase CK-MB (CK-2) CK-MB (CK-2) % Troponin I B-Natriuretic Peptide Serum Total Protein 5.4 L Albumin 2.5 L Globulin 2.9 Albumin/Globulin Ratio 0.9 L - Results/Orders Results/Orders: 04/20/17 12:47 Vital Signs-Tilt PRN Laboratory Results - last 24 hr 04/20/17 04/20/17 04/20/17 13:00 13:00 13:00 WBC 5.1 RBC 3.02 L Hgb 8.6 L Hct 26.4 L MCV 87.3 MCH 28.4 MCHC 32.6 L RDW 19.2 H Plt Count 32 L* MPV 8.3 Absolute Neuts (auto) 4.70 Absolute Lymphs (auto) 0.20 L Absolute Monos (auto) 0.20 Absolute Eos (auto) 0.00 Absolute Basos (auto) 0.00 Neutrophils % 92.4 H Lymphocytes % 4.3 L Monocytes % 3.1 Eosinophils % 0.1 L Basophils % 0.1 Normal RBC Morphology Plts roberto decreased PT 12.8 H INR 1.130 PTT (SP) 25.4 Sodium Potassium Chloride Carbon Dioxide Anion Gap BUN Creatinine BUN/Creatinine Ratio Random Glucose Serum Osmolality Calcium Total Bilirubin AST ALT Alkaline Phosphatase Creatine Kinase 28 L CK-MB (CK-2) 5.1 H* CK-MB (CK-2) % 18.21 H Troponin I 0.08 H* B-Natriuretic Peptide 1360.0 H* Serum Total Protein Albumin Globulin Albumin/Globulin Ratio 04/20/17 13:00 WBC RBC Hgb Hct MCV MCH MCHC RDW Plt Count MPV Absolute Neuts (auto) Absolute Lymphs (auto) Absolute Monos (auto) Absolute Eos (auto) Absolute Basos (auto) Neutrophils % Lymphocytes % Monocytes % Eosinophils % Basophils % Normal RBC Morphology PT INR PTT (SP) Sodium 137 Potassium 3.6 Chloride 100 L Carbon Dioxide 31 Anion Gap 9.6 L BUN 25 H Creatinine 0.83 BUN/Creatinine Ratio 30.1 H Random Glucose 139 H Serum Osmolality 280.5 Calcium 8.4 Total Bilirubin 0.7 AST 19 ALT 46 Alkaline Phosphatase 64 Creatine Kinase CK-MB (CK-2) CK-MB (CK-2) % Troponin I B-Natriuretic Peptide Serum Total Protein 5.4 L Albumin 2.5 L Globulin 2.9 Albumin/Globulin Ratio 0.9 L Departure - Departure Clinical Impression: Near syncope Anemia aplastic aregenerative Qualifiers: Bone marrow failure anemia type: other bone marrow failure Qualified Code(s): D61.89 - Other specified aplastic anemias and other bone marrow failure syndromes Disposition: Discharge to Home or Self Care Departure Forms: ED Discharge - Pt. Copy, Patient Portal Self Enrollment Instructions: Aortic Stenosis -- Adult Diet: regular diet Activity: ambulate only with walker, increase activity as tolerated Referrals: Krishna White III, MD [Primary Care Provider] - 1-5 Days Home Medications: Ambulatory Orders Tamsulosin [Flomax] 0.4 mg PO QD 11/15/12 Trazodone HCl 50 - 100 mg PO HS 04/04/13 Acyclovir [Zovirax] 400 mg PO BID 08/21/14 DULoxetine HCL [Cymbalta] 60 mg PO DAILY 08/21/14 Isosorbide Mononitrate [Imdur] 30 mg PO DAILY 08/21/14 Calcitonin ([place]) [Fortical] 200 unit PO DAILY 07/22/15 Atorvastatin Calcium [Lipitor] 80 mg PO BEDTIME 08/26/15 Dexamethasone 4 mg PO DAILY 03/21/17 Gabapentin 300 mg PO TID 03/21/17 Levothyroxine Sodium 50 mcg PO DAILY 03/21/17 Tbo-Filgrastim [Granix] 300 mcg SC DAILY 03/21/17 Zoledronic Acid 4 mg IV DAILY 03/21/17 Albuterol Sulfate Nebs [Proventil Nebs] 2.5 mg INH PRN PRN 04/11/17 Calcium Carbonate-Cholecalcife [Caltrate 600+D] 1 tab PO BEDTIME 04/11/17 Cholecalciferol [Eql Vitamin D3] 1,000 unit PO DAILY 04/11/17 Clonidine HCl 0.1 mg PO TID 04/11/17 Cyanocobalamin [Vitamin B-12] 1,000 mcg SL DAILY 04/11/17 Furosemide 20 mg PO DAILY 04/11/17 Isosorbide Mononitrate [Isosorbide Mononitrate ER] 30 mg PO DAILY 04/11/17 Magnesium Oxide (mg Supplement [Magnesium Oxide] 400 mg PO DAILY 04/11/17 hydrALAZINE HCl [(None)] 25 mg PO TID 04/11/17 Doxycycline (Monohydrate) [Doxycycline Monohydrate] 100 mg PO 04/20/17 Hydrocortisone 25 mg Supp [Anusol-HC Suppository] 04/20/17 Prednisone [Deltasone] 20 mg PO 04/20/17 Additional Instructions: the patient is a 71-year-old male presenting to the emergency room secondary to near syncopal episodes and the need for a hemoglobin check. The near syncopal episodes are undoubtedly due to aortic stenosis. These will continue until he gets the valve fixed. He has been instructed to sit up slowly and stand up slowly and hold onto things so that he does not pass completely out. He may need to obtain a wheelchair for the next few weeks in order to avoid standing. I believe his fluid status is as ideal as it can be at this time. He is not receiving IV fluids and we're not changing his diuretics at this time. Hemoglobin is adequate today. He needs to keep follow- up with his oncologist tomorrow for further management. ER warnings were given for any acute worsening. Laboratory Tests 04/20/17 04/20/17 04/20/17 13:00 13:00 13:00 WBC 5.1 RBC 3.02 L Hgb 8.6 L Hct 26.4 L MCV 87.3 MCH 28.4 MCHC 32.6 L RDW 19.2 H Plt Count 32 L* MPV 8.3 Absolute Neuts (auto) 4.70 Absolute Lymphs (auto) 0.20 L Absolute Monos (auto) 0.20 Absolute Eos (auto) 0.00 Absolute Basos (auto) 0.00 Neutrophils % 92.4 H Lymphocytes % 4.3 L Monocytes % 3.1 Eosinophils % 0.1 L Basophils % 0.1 Normal RBC Morphology Plts roberto decreased PT 12.8 H INR 1.130 PTT (SP) 25.4 Sodium Potassium Chloride Carbon Dioxide Anion Gap BUN Creatinine BUN/Creatinine Ratio Random Glucose Serum Osmolality Calcium Total Bilirubin AST ALT Alkaline Phosphatase Creatine Kinase 28 L CK-MB (CK-2) 5.1 H* CK-MB (CK-2) % 18.21 H Troponin I 0.08 H* B-Natriuretic Peptide 1360.0 H* Serum Total Protein Albumin Globulin Albumin/Globulin Ratio 04/20/17 13:00 WBC RBC Hgb Hct MCV MCH MCHC RDW Plt Count MPV Absolute Neuts (auto) Absolute Lymphs (auto) Absolute Monos (auto) Absolute Eos (auto) Absolute Basos (auto) Neutrophils % Lymphocytes % Monocytes % Eosinophils % Basophils % Normal RBC Morphology PT INR PTT (SP) Sodium 137 Potassium 3.6 Chloride 100 L Carbon Dioxide 31 Anion Gap 9.6 L BUN 25 H Creatinine 0.83 BUN/Creatinine Ratio 30.1 H Random Glucose 139 H Serum Osmolality 280.5 Calcium 8.4 Total Bilirubin 0.7 AST 19 ALT 46 Alkaline Phosphatase 64 Creatine Kinase CK-MB (CK-2) CK-MB (CK-2) % Troponin I B-Natriuretic Peptide Serum Total Protein 5.4 L Albumin 2.5 L Globulin 2.9 Albumin/Globulin Ratio 0.9 L
[2017-04-20 15:41] VITALS: BP 112/63
== END 2017-04-20 15:31 | disposition home or self-care (01) ==
LOC: ER 12:39
DX: R55 Syncope and collapse (principal); D61.89 Other specified aplastic anemias and other bone marrow failure syndromes; I35.0 Nonrheumatic aortic (valve) stenosis; Z91.041 Radiographic dye allergy status; Z79.899 Other long term (current) drug therapy; I10 Essential (primary) hypertension; C90.00 Multiple myeloma not having achieved remission

== ENCOUNTER → 2017-05-06 | Outpatient (CLI) | payer MEDICARE, BC | END | disposition home or self-care (01) | LOC: BFHH 16:29 | PROVIDERS: ATTEND Family Medicine | DX: C90.02 Multiple myeloma in relapse (principal) ==

== ENCOUNTER → 2017-05-13 | Outpatient (CLI) | payer BC, MEDICARE | END | disposition home or self-care (01) | LOC: BFHH 15:30 | PROVIDERS: ATTEND Family Medicine | DX: C90.00 Multiple myeloma not having achieved remission (principal) ==

== ENCOUNTER → 2017-05-20 | Outpatient (CLI) | payer MEDICARE | END | disposition home or self-care (01) | LOC: BFHH 13:01 | PROVIDERS: ATTEND Family Medicine | DX: C90.00 Multiple myeloma not having achieved remission (principal) ==

== ENCOUNTER → 2017-06-08 | Outpatient (CLI) | payer MEDICARE, OTHER | END | disposition home or self-care (01) | LOC: GMAL 15:28 | PROVIDERS: ATTEND Family Medicine | DX: C90.00 Multiple myeloma not having achieved remission (principal) ==

== ENCOUNTER → 2017-06-24 | Outpatient (CLI) | payer MEDICARE, OTHER | END | disposition home or self-care (01) | LOC: BFHH 16:58 | PROVIDERS: ATTEND Family Medicine | DX: C90.00 Multiple myeloma not having achieved remission (principal) ==

== ENCOUNTER → 2017-07-01 | Outpatient (CLI) | payer MEDICARE, OTHER | END | disposition home or self-care (01) | LOC: BFHH 12:25 | PROVIDERS: ATTEND Family Medicine | DX: C90.00 Multiple myeloma not having achieved remission (principal) ==

== ENCOUNTER → 2017-07-08 | Outpatient (CLI) | payer MEDICARE, OTHER | END | disposition home or self-care (01) | LOC: BFHH 14:18 | PROVIDERS: ATTEND Family Medicine | DX: C90.00 Multiple myeloma not having achieved remission (principal) ==

== ENCOUNTER 2017-09-03 15:58 | Outpatient (CLI) | payer MEDICARE, OTHER ==
[2017-09-06] MEDS: ACETAMINOPHEN 325 MG TAB PO ONE (14:07)
[2017-09-06] MEDS: diphenhydrAMINE HCL 25 MG CAP PO ONE (14:07)
[2017-09-06] MEDS: SODIUM CHLORIDE 0.9% 500ML 500 ML IVS PRN (14:08)
[2017-09-06] MEDS: SODIUM CHLORIDE 0.9% (FLUSH) 10 ML SYG IV PRN (17:31)
[2017-09-06 18:05] VITALS: BP 132/62; TEMP 98.3; O2SAT 94
== END 2017-09-06 18:11 | disposition home or self-care (01) ==
LOC: TXRM 15:58
PROVIDERS: ATTEND Internal Medicine Medical Oncology
PROC: 30233N1 Transfusion of Nonautologous Red Blood Cells into Peripheral Vein, Percutaneous Approach (ICD-10-PCS; principal; 2017-09-03)
PROC: 30233N1 Transfusion of Nonautologous Red Blood Cells into Peripheral Vein, Percutaneous Approach (ICD-10-PCS; 2017-09-06)
DX: D64.81 Anemia due to antineoplastic chemotherapy (principal)
CPT/HCPCS: 36430; 86850; 86900; 86901; 86922; G0463; J7040; P9016; Q0163

== ENCOUNTER 2017-09-28 18:02 | Outpatient (CLI) | payer MEDICARE, OTHER ==
[2017-09-29] MEDS ORDERED: ACETAMINOPHEN 325 MG TAB PO ONE (10:50)
[2017-09-29] MEDS ORDERED: diphenhydrAMINE HCL 25 MG CAP PO ONE (10:50)
[2017-09-29 14:18] VITALS: BP 151/77; TEMP 98.1; O2SAT 97
== END 2017-09-29 14:15 | disposition home or self-care (01) ==
LOC: LAB 18:02 → TXRM 09-29 14:15
PROVIDERS: ATTEND Internal Medicine Medical Oncology
DX: D64.81 Anemia due to antineoplastic chemotherapy (principal)

== ENCOUNTER → 2017-11-05 | Outpatient (CLI) | payer MEDICARE, OTHER | END | disposition home or self-care (01) | LOC: GMA 14:38 | PROVIDERS: ATTEND Physician Assistant | DX: N30.00 Acute cystitis without hematuria (principal); M54.08 Panniculitis affecting regions of neck and back, sacral and sacrococcygeal region; C90.00 Multiple myeloma not having achieved remission ==

== ENCOUNTER → 2017-12-15 | Day surgery (SDC) | payer MEDICARE, OTHER ==
[~2017-12-15] MED LIST: ACETAMINOPHEN 325 MG TAB ONE; HEPARIN SODIUM 100 U/ML 5 ML SYG IV ONE; SODIUM CHLORIDE 0.9% 500ML 500 ML ONE; diphenhydrAMINE HCL 25 MG CAP ONE
[2017-12-15 13:44] VITALS: BP 98/53; TEMP 97.6; O2SAT 97
== END ==
LOC: TXRM 08:00 → AMB 08:00
PROVIDERS: ATTEND Internal Medicine Medical Oncology
DX: C90.02 Multiple myeloma in relapse (principal)
CPT/HCPCS: G0463; J1642; J7040; P9035; Q0163

== ENCOUNTER 2017-12-18 13:25 | Outpatient (CLI) | payer MEDICARE, OTHER ==
[2017-12-21] MEDS ORDERED: SODIUM CHLORIDE 0.9% 500ML 500 ML IVS ONE (08:20)
[2017-12-21] MEDS ORDERED: ACETAMINOPHEN 325 MG TAB PO ONE (08:30)
[2017-12-21] MEDS ORDERED: diphenhydrAMINE HCL 25 MG CAP PO ONE (08:30)
[2017-12-21] MEDS ORDERED: SODIUM CHLORIDE 0.9% (FLUSH) 10 ML SYG IV ONE (11:30)
[2017-12-21] MEDS ORDERED: HEPARIN SODIUM 100 U/ML 5 ML SYG IV ONE (11:31)
[2017-12-21 12:27] VITALS: BP 123/61; TEMP 97.5; O2SAT 97
== END 2017-12-21 12:00 | disposition home or self-care (01) ==
LOC: LAB.O 13:25
PROVIDERS: ATTEND Internal Medicine Medical Oncology
DX: C90.02 Multiple myeloma in relapse (principal)
CPT/HCPCS: 36415; 86850; 86900; 86901; 86922; A4216; G0463; J1642; J7040; P9016; Q0163

== ENCOUNTER → 2018-01-12 | Outpatient (CLI) | payer MEDICARE, OTHER ==
[~2018-01-12] MED LIST changes: -ACETAMINOPHEN 325 MG TAB ONE; +ACETAMINOPHEN 325 MG TAB PO ONE; +SODIUM CHLORIDE 0.9% (FLUSH) 10 ML SYG IV ONE; +SODIUM CHLORIDE 0.9% 500 ML BAG IVS ONE; -SODIUM CHLORIDE 0.9% 500ML 500 ML ONE; -diphenhydrAMINE HCL 25 MG CAP ONE; +diphenhydrAMINE HCL 25 MG CAP PO ONE
[2018-01-13 15:56] VITALS: O2SAT 97
[2018-01-13 16:01] VITALS: BP 141/59; TEMP 97.8
--- NOTE | 2018-01-14 08:42 | CT ---
EXAM DESCRIPTION: Upper Extremity CLINICAL HISTORY: MULTIPLE MYELOMA COMPARISON: None Available. TECHNIQUE: Extremity CT of the left lower neck, upper thorax and shoulder is performed with thin-section axial imaging. MPRs are created and reviewed as well. 3-dimensional reconstructions created on a dedicated workstation were created and are also maintained in the patient's medical record. FINDINGS: There is a mass involving the lower left sternocleidomastoid muscle and superomedial left clavicle which measures approximately 3.6 x 2.9 x 4.2 cm. On the axial images, the superomedial aspect of the clavicle appears minimally eroded or invaded. Sagittal images show normal trabeculae in the head of the clavicle but lack of internal medullary trabecular architecture more peripherally in the region of the mass. In a patient with multiple myeloma, a myelomatous lesion involving the soft tissues is considered most likely. The epicenter the mass is in the soft tissues and the evidence of bone destruction is fairly minimal. There is only one lesion without other changes of systemic multiple myeloma, this might be considered an extra medullary plasmacytoma. Otherwise, extraosseous myelomatous lesion would be the main consideration. (Extraosseous myelomatous lesions are simply more common in younger patients with nonsecretory myeloma or IgD myeloma. Correlate with other studies.) Differential considerations for a soft tissue mass with this appearance would include primary tumor of muscle such as rhabdomyosarcoma or malignant fibrous histiocytoma, lymphoma, or metastasis. Vascular lesion such as hemangioma is possible but thought less likely. There is positive enhancement of tumor vessels along the superior aspect of the mass and positive diffuse enhancement of the lesion itself. Normal enhancement of adjacent vessels. No involvement of the common carotid artery or subclavian artery or internal jugular vein or subclavian vein. Degenerative changes are seen in the C-spine. The shoulder joint appears intact. Normal appearance of the brachial plexus. Degenerative changes are prominent in the lower C-spine. Evaluating bone window images, scattered punctate lucencies in the vertebral bodies and sternum are noted. Lucencies in the humeral head are thought to be subchondral degenerative cystic changes but there may be subtle myelomatous changes as well. Subtle changes are also seen in the acromion of the scapula. These findings are consistent with the clinical diagnosis of multiple myeloma although they could be seen with aggressive osteoporosis, hyperparathyroidism or amyloidosis of bone. Small to moderate left pleural effusion is present. Lung window images show no infiltrate or mass in the apex of the left lung. A ring density foreign body is seen in the subcutaneous fat anterior to the left axilla below the level of the peripheral clavicle. Three-D shaded surface display images of the bones are rotated mediolaterally. Bony destructive changes are in apparent with this technique. IMPRESSION: Enhancing soft tissue mass involving the inferior left sternocleidomastoid muscle with subtle bony erosive/destructive changes of the superior medial left clavicle. See above discussion and differential considerations. Scattered small lucencies in other osseous structures consistent with myelomatous changes. Metallic foreign body in the subcutaneous fat anterior to the left axilla. Small to moderate sized left pleural effusion. This exam was performed according to our departmental dose-optimization program, which includes automated exposure control, adjustment of the mA and/or kV according to patient size and/or use of iterative reconstruction technique. Total DLP equals 586.99 mGycm. Electronically signed by: Alex Aviles MD 01/14/2018 8:41 AM [employer]
== END ==
LOC: LAB.O 17:17
PROVIDERS: ATTEND Internal Medicine Medical Oncology
DX: C90.02 Multiple myeloma in relapse (principal)
CPT/HCPCS: 73200; 82565; 84520; 86850; 86900; 86901; 86922; A4216; G0463; J1642; J7040; P9016; Q0163

== ENCOUNTER 2018-01-16 17:33 | Emergency (ER) | payer MEDICARE, OTHER ==
--- NOTE | 2018-01-16 18:13 | ED.PDOC ---
History of Present Illness - General Chief Complaint: General Stated Complaint: Multiple Myeloma, feeling weak Time Seen by Provider: 01/16/18 17:38 Source: patient Exam Limitations: no limitations - History of Present Illness Initial Comments: Jensen Briggs 72 y/o male with history of multiple myeloma for the last 22 years underwent 3 stem cell transplant as well as multiple chemotherapy.Presently on Pomalyst taken by pill 21 days on 7 days off.Denies fever ,chills,N/V,tarry stool ,blood in urine.Had received multiple blood transfusion in the past for chronic anemia from his multiple myeloma and chemotherapy induced.Had recently received 4 units PRBC a few weeks ago. Timing/Duration: 24 hours, intermittent Severity: moderate Improving Factors: other - blood transfusion Worsening Factors: other - chemotherapy/see hpi Associated Symptoms: malaise Allergies/Adverse Reactions: Allergies NO KNOWN ALLERGY Allergy (Verified 01/16/18 18:20) Home Medications: Ambulatory Orders Acyclovir [Zovirax] 400 mg PO BID 08/21/14 DULoxetine HCL [Cymbalta] 60 mg PO DAILY 08/21/14 Calcitonin ([place]) [Fortical] 200 unit PO DAILY 07/22/15 Atorvastatin Calcium [Lipitor] 80 mg PO BEDTIME 08/26/15 Dexamethasone 4 mg PO DAILY 03/21/17 Gabapentin 300 mg PO TID 03/21/17 Levothyroxine Sodium 50 mcg PO DAILY 03/21/17 Tbo-Filgrastim [Granix] 300 mcg SC BIW 03/21/17 Cholecalciferol [Eql Vitamin D3] 1,000 unit PO DAILY 04/11/17 Cyanocobalamin [Vitamin B-12] 1,000 mcg SL DAILY 04/11/17 Furosemide 20 mg PO DAILY 04/11/17 Isosorbide Mononitrate [Isosorbide Mononitrate ER] 30 mg PO DAILY 04/11/17 Magnesium Oxide (mg Supplement [Magnesium Oxide] 400 mg PO DAILY 04/11/17 Prednisone [Deltasone] 20 mg PO WKLY 04/20/17 Review of Systems - Review of Systems Constitutional: States: malaise EENTM: States: no symptoms reported Respiratory: States: no symptoms reported Cardiology: States: no symptoms reported Gastrointestinal/Abdominal: States: no symptoms reported Genitourinary: States: no symptoms reported Musculoskeletal: States: no symptoms reported Skin: States: no symptoms reported Neurological: States: no symptoms reported Endocrine: States: no symptoms reported Hematologic/Lymphatic: States: see HPI, anemia Past Medical History (General) - Patient Medical History Hx Seizures: No Hx Stroke: No Hx Dementia: No Hx Asthma: No Hx of COPD: No Hx Cardiac Disorders: Yes Hx Congestive Heart Failure: No Hx Pacemaker: No Hx Hypertension: Yes Hx Thyroid Disease: No Hx Diabetes: No Hx Gastroesophageal Reflux: No Hx Renal Disease: No Hx Cancer: Yes - MULTIPLE MYELOMA Hx of HIV: No Hx Hepatitis C: No Hx MRSA: Yes MRSA Source:: nose Surgical History: other - cataract,back,cardiac stent - Vaccination History Hx Tetanus, Diphtheria Vaccination: Yes - 2013 Hx Influenza Vaccination: Yes Hx Pneumococcal Vaccination: Yes - Social History Hx Tobacco Use: No Hx Chewing Tobacco Use: No Hx Alcohol Use: No Hx Substance Use: No Hx Substance Use Treatment: No Hx Depression: No Hx Physical Abuse: No Hx Emotional Abuse: No Hx Suspected Abuse: No - Female History Patient : No Family Medical History - Family History Father Family History: Unknown Living Status: Unknown Hx Family Hypertension: Yes Hx Family Cancer: Yes - stomach CA Hx Family;Other: Parkinson's disease- mom;CAD-brother Physical Exam - Physical Exam General Appearance: Alert, Comfortable, No apparent distress Eye Exam: bilateral normal Ears, Nose, Throat: hearing grossly normal, normal ENT inspection Neck: non-tender, supple Respiratory: chest non-tender, lungs clear, normal breath sounds Cardiovascular/Chest: regular rate, rhythm, no gallop, systolic murmur - 3/6 apex Peripheral Pulses: radial,right: 2+ Gastrointestinal/Abdominal: non tender, soft, no organomegaly Back Exam: no CVA tenderness, no vertebral tenderness Extremity: no pedal edema, no calf tenderness Neurologic: alert, oriented x 3 Skin Exam: normal color, pallor Progress - Progress Progress: 01/16/18 23:55 Vital Signs - 8 hr 01/16/18 01/16/18 01/16/18 17:54 18:34 19:00 Temperature 97.6 F Pulse Rate [L 65 63 93 H Arm] Respiratory 18 22 12 Rate Blood Pressure 136/80 141/72 [L Arm] O2 Sat by Pulse 94 L 93 L 97 Oximetry 01/16/18 01/16/18 01/16/18 19:15 19:58 20:05 Temperature 98.1 F 98.1 F Pulse Rate [L 62 70 67 Arm] Respiratory 20 20 Rate Blood Pressure 147/91 148/71 [L Arm] O2 Sat by Pulse 95 92 L Oximetry 01/16/18 01/16/18 20:15 20:30 Temperature 98.7 F 98.8 F Pulse Rate [L 63 63 Arm] Respiratory 18 18 Rate Blood Pressure 148/71 144/72 [L Arm] O2 Sat by Pulse 95 94 L Oximetry - Results/Orders Results/Orders: Laboratory Results - last 24 hr 01/16/18 01/16/18 01/16/18 18:25 18:25 18:25 WBC 2.7 L RBC 2.37 L Hgb 7.5 L* Hct 22.9 L MCV 96.6 H MCH 31.6 H MCHC 33.0 RDW 20.5 H Plt Count 35 L* MPV 8.0 Absolute Neuts (auto) 1.50 L Absolute Lymphs (auto) 0.50 L Absolute Monos (auto) 0.70 Absolute Eos (auto) 0.10 Absolute Basos (auto) 0.00 Neutrophils % 54.0 Lymphocytes % 17.6 L Monocytes % 25.0 H Eosinophils % 2.9 Basophils % 0.5 Sodium 137 Potassium 3.6 Chloride 103 Carbon Dioxide 28 Anion Gap 9.6 L BUN 24 H Creatinine 0.92 BUN/Creatinine Ratio 26.1 H Random Glucose 105 Serum Osmolality 278.2 Calcium 8.5 Total Bilirubin 0.5 AST 16 ALT 17 Alkaline Phosphatase 50 Serum Total Protein 5.8 L Albumin 3.0 L Globulin 2.8 Albumin/Globulin Ratio 1.1 Urine Color Urine Appearance Urine pH Ur Specific [place] Urine Protein Urine Glucose (UA) Urine Ketones Urine Blood Urine Nitrite Urine Bilirubin Urine Urobilinogen Ur Leukocyte Esterase Urine RBC Urine WBC Ur Epithelial Cells Amorphous Sediment Urine Bacteria Patient ABO/Rh O POSITIVE Antibody Screen Negative Crossmatch See Detail 01/16/18 18:45 WBC RBC Hgb Hct MCV MCH MCHC RDW Plt Count MPV Absolute Neuts (auto) Absolute Lymphs (auto) Absolute Monos (auto) Absolute Eos (auto) Absolute Basos (auto) Neutrophils % Lymphocytes % Monocytes % Eosinophils % Basophils % Sodium Potassium Chloride Carbon Dioxide Anion Gap BUN Creatinine BUN/Creatinine Ratio Random Glucose Serum Osmolality Calcium Total Bilirubin AST ALT Alkaline Phosphatase Serum Total Protein Albumin Globulin Albumin/Globulin Ratio Urine Color Yellow Urine Appearance Clear Urine pH 7.0 Ur Specific [place] 1.015 Urine Protein 30 Urine Glucose (UA) Negative Urine Ketones Negative Urine Blood Small H Urine Nitrite Negative Urine Bilirubin Negative Urine Urobilinogen 0.2 Ur Leukocyte Esterase Negative Urine RBC 3-5 H Urine WBC 0-1 Ur Epithelial Cells 0-1 Amorphous Sediment Trace Urine Bacteria Rare Patient ABO/Rh Antibody Screen Crossmatch Departure - Departure Clinical Impression: Anemia due to chemotherapy, History of multiple myeloma Time of Disposition: 23:57 Disposition: Discharge to Home or Self Care Condition: Fair Departure Forms: ED Discharge - Pt. Copy, Patient Portal Self Enrollment Referrals: Krishna White III, MD [Primary Care Provider] - 1-2 Weeks Home Medications: Ambulatory Orders Acyclovir [Zovirax] 400 mg PO BID 08/21/14 DULoxetine HCL [Cymbalta] 60 mg PO DAILY 08/21/14 Calcitonin ([place]) [Fortical] 200 unit PO DAILY 07/22/15 Atorvastatin Calcium [Lipitor] 80 mg PO BEDTIME 08/26/15 Dexamethasone 4 mg PO DAILY 03/21/17 Gabapentin 300 mg PO TID 03/21/17 Levothyroxine Sodium 50 mcg PO DAILY 03/21/17 Tbo-Filgrastim [Granix] 300 mcg SC BIW 03/21/17 Cholecalciferol [Eql Vitamin D3] 1,000 unit PO DAILY 04/11/17 Cyanocobalamin [Vitamin B-12] 1,000 mcg SL DAILY 04/11/17 Furosemide 20 mg PO DAILY 04/11/17 Isosorbide Mononitrate [Isosorbide Mononitrate ER] 30 mg PO DAILY 04/11/17 Magnesium Oxide (mg Supplement [Magnesium Oxide] 400 mg PO DAILY 04/11/17 Prednisone [Deltasone] 20 mg PO WKLY 04/20/17 Additional Instructions: Keep appointment with hematology/oncologist;Return to emergency room as needed; Follow up with primary Md as needed
[2018-01-16] MEDS ORDERED: diphenhydrAMINE HCL 25 MG CAP PO ONE (18:53)
[2018-01-16] MEDS ORDERED: ACETAMINOPHEN 500 MG TAB PO ONE (18:53)
[2018-01-16] MEDS ORDERED: LACTATED RINGERS 0 ML ONE (19:47)
[2018-01-16] MEDS ORDERED: SODIUM CHLORIDE 0.9% 500ML 500 ML ONE (19:51)
[2018-01-17] MEDS ORDERED: HEPARIN SODIUM 100 U/ML 5 ML SYG IV ONE (01:06)
[2018-01-17 01:20] VITALS: BP 140/77; TEMP 98.2; O2SAT 96
== END 2018-01-17 01:20 | disposition home or self-care (01) ==
LOC: ER 17:33
DX: D64.81 Anemia due to antineoplastic chemotherapy (principal); C90.00 Multiple myeloma not having achieved remission; T45.1X5A Adverse effect of antineoplastic and immunosuppressive drugs, initial encounter
CPT/HCPCS: 36415; 80053; 81001; 85025; 86850; 86900; 86901; 86922; J1642; J7040; P9016; Q0163

== ENCOUNTER 2018-01-24 13:49 | Emergency (ER) | payer MEDICARE, OTHER ==
--- NOTE | 2018-01-24 15:32 | ED.PDOC ---
History of Present Illness - General Chief Complaint: General Stated Complaint: weakness, dizziness Time Seen by Provider: 01/24/18 13:55 Source: patient Exam Limitations: no limitations - History of Present Illness Initial Comments: Jensen Gay 72 y/o male stated that he had been feeling weak ,dizzy and almost want to pass out today. Had 2 units of blood transfusion 16 January 2018 for his multiple myeloma and chemotherapy induced anemia.No blood in stool,no hematemesis. Timing/Duration: 24 hours Severity: moderate Improving Factors: nothing Worsening Factors: nothing Associated Symptoms: other - see hpi Allergies/Adverse Reactions: Allergies NO KNOWN ALLERGY Allergy (Verified 01/24/18 14:30) Home Medications: Ambulatory Orders Acyclovir [Zovirax] 400 mg PO BID 08/21/14 DULoxetine HCL [Cymbalta] 60 mg PO DAILY 08/21/14 Calcitonin ([place]) [Fortical] 200 unit PO DAILY 07/22/15 Atorvastatin Calcium [Lipitor] 80 mg PO BEDTIME 08/26/15 Dexamethasone 4 mg PO DAILY 03/21/17 Gabapentin 300 mg PO TID 03/21/17 Levothyroxine Sodium 50 mcg PO DAILY 03/21/17 Tbo-Filgrastim [Granix] 300 mcg SC BIW 03/21/17 Cholecalciferol [Eql Vitamin D3] 1,000 unit PO DAILY 04/11/17 Cyanocobalamin [Vitamin B-12] 1,000 mcg SL DAILY 04/11/17 Furosemide 20 mg PO DAILY 04/11/17 Isosorbide Mononitrate [Isosorbide Mononitrate ER] 30 mg PO DAILY 04/11/17 Magnesium Oxide (mg Supplement [Magnesium Oxide] 400 mg PO DAILY 04/11/17 Prednisone [Deltasone] 20 mg PO WKLY 04/20/17 Review of Systems - Review of Systems Constitutional: States: weakness EENTM: States: no symptoms reported Respiratory: States: no symptoms reported Cardiology: States: no symptoms reported Gastrointestinal/Abdominal: States: no symptoms reported Genitourinary: States: no symptoms reported Hematologic/Lymphatic: States: see HPI, anemia All other Systems: Reviewed and Negative, No Change from Baseline Past Medical History (General) - Patient Medical History Hx Seizures: No Hx Stroke: No Hx Dementia: No Hx Asthma: No Hx of COPD: No Hx Cardiac Disorders: Yes Hx Congestive Heart Failure: No Hx Pacemaker: No Hx Hypertension: Yes Hx Thyroid Disease: No Hx Diabetes: No Hx Gastroesophageal Reflux: No Hx Renal Disease: No Hx Cancer: Yes - MULTIPLE MYELOMA Hx of HIV: No Hx Hepatitis C: No Hx MRSA: Yes MRSA Source:: nose Surgical History: other - cataract,back,cardiac stent - Vaccination History Hx Tetanus, Diphtheria Vaccination: Yes - 2013 Hx Influenza Vaccination: Yes Hx Pneumococcal Vaccination: Yes - Social History Hx Tobacco Use: No Hx Chewing Tobacco Use: No Hx Alcohol Use: Yes - occasional Hx Substance Use: No Hx Substance Use Treatment: No Hx Depression: No Hx Physical Abuse: No Hx Emotional Abuse: No Hx Suspected Abuse: No - Activities of Daily Living Patient Lives Alone: No Grooming Ability: Independent Eating (Feeding) Ability: Independent Toileting Ability: Independent - Female History Patient : No Family Medical History - Family History Father Family History: Unknown Living Status: Unknown Hx Family Hypertension: Yes Hx Family Cancer: Yes - stomach CA Hx Family;Other: Parkinson's disease- mom;CAD-brother Physical Exam - Physical Exam General Appearance: Alert, Comfortable, No apparent distress Eye Exam: bilateral normal, bilateral abnormal EOM Ears, Nose, Throat: hearing grossly normal Neck: full range of motion, supple Respiratory: chest non-tender, lungs clear, normal breath sounds, no respiratory distress Cardiovascular/Chest: normal peripheral pulses, regular rate, rhythm, no murmur Peripheral Pulses: radial,right: 2+, radial,left: 2+ Gastrointestinal/Abdominal: normal bowel sounds, non tender, soft, no organomegaly Back Exam: no CVA tenderness, no vertebral tenderness Extremity: non-tender, normal inspection, no pedal edema, no calf tenderness Neurologic: alert, oriented x 3 Skin Exam: warm/dry, pallor Lymphatic: no adenopathy Progress - Progress Progress: 01/24/18 15:34 Vital Signs - 8 hr 01/24/18 14:00 Temperature 98.6 F Pulse Rate [ 72 pulse ox] Respiratory 20 Rate Blood Pressure 123/62 [Right Arm] O2 Sat by Pulse 98 Oximetry 01/24/18 16:31 D/W dr. Deleon Hematology/Oncology [employer] worker for Dr. Loza that we can give 2 units of PRBC here as well as his Neulasta which he self adminiter.To call up his oncologist Dr. Loza in am. - Results/Orders Results/Orders: 01/24/18 14:37 IV Care:Saline Lock per Protoc QSHIFT 01/24/18 15:10 Chest,1 View [RAD] Stat Laboratory Results - last 24 hr 01/24/18 01/24/18 01/24/18 14:49 14:49 14:49 WBC 1.9 L* RBC 1.79 L Hgb 5.6 L* Hct 17.0 L MCV 95.4 H MCH 31.2 H MCHC 32.7 L RDW 23.0 H Plt Count 50 L MPV 7.7 Absolute Neuts (auto) 1.20 L Absolute Lymphs (auto) 0.40 L Absolute Monos (auto) 0.20 Absolute Eos (auto) 0.00 Absolute Basos (auto) 0.00 Neutrophils % 63.7 Lymphocytes % 23.4 Monocytes % 12.0 H Eosinophils % 0.7 L Basophils % 0.2 Sodium 136 Potassium 4.0 Chloride 103 Carbon Dioxide 27 Anion Gap 10.0 L BUN 28 H Creatinine 0.94 BUN/Creatinine Ratio 29.8 H Random Glucose 117 H Serum Osmolality 278.5 Lactic Acid 1.5 Calcium 8.1 L Total Bilirubin 0.6 AST 20 ALT 18 Alkaline Phosphatase 47 Serum Total Protein 5.9 L Albumin 3.0 L Globulin 2.9 Albumin/Globulin Ratio 1.0 L Urine Color Urine Appearance Urine pH Ur Specific [place] Urine Protein Urine Glucose (UA) Urine Ketones Urine Blood Urine Nitrite Urine Bilirubin Urine Urobilinogen Ur Leukocyte Esterase Urine RBC Urine WBC Ur Epithelial Cells Urine Bacteria 01/24/18 15:36 WBC RBC Hgb Hct MCV MCH MCHC RDW Plt Count MPV Absolute Neuts (auto) Absolute Lymphs (auto) Absolute Monos (auto) Absolute Eos (auto) Absolute Basos (auto) Neutrophils % Lymphocytes % Monocytes % Eosinophils % Basophils % Sodium Potassium Chloride Carbon Dioxide Anion Gap BUN Creatinine BUN/Creatinine Ratio Random Glucose Serum Osmolality Lactic Acid Calcium Total Bilirubin AST ALT Alkaline Phosphatase Serum Total Protein Albumin Globulin Albumin/Globulin Ratio Urine Color Yellow Urine Appearance Clear Urine pH 6.0 Ur Specific [place] 1.010 Urine Protein 30 Urine Glucose (UA) Negative Urine Ketones Negative Urine Blood Negative Urine Nitrite Negative Urine Bilirubin Negative Urine Urobilinogen 0.2 Ur Leukocyte Esterase Negative Urine RBC 0 Urine WBC 0 Ur Epithelial Cells 0 Urine Bacteria 0 - EKG/XRAY/CT XRAY: chest - atelectasis Departure - Departure Clinical Impression: Antineoplastic chemotherapy induced pancytopenia Multiple myeloma, without mention of having achieved remission Qualifiers: Multiple myeloma remission status: unspecified Qualified Code(s): C90.00 - Multiple myeloma not having achieved remission Time of Disposition: 22:20 Disposition: Discharge to Home or Self Care Condition: Fair Departure Forms: ED Discharge - Pt. Copy, Patient Portal Self Enrollment Referrals: Krishna White III, MD [Primary Care Provider] - 1-2 Weeks Home Medications: Ambulatory Orders Acyclovir [Zovirax] 400 mg PO BID 08/21/14 DULoxetine HCL [Cymbalta] 60 mg PO DAILY 08/21/14 Calcitonin ([place]) [Fortical] 200 unit PO DAILY 07/22/15 Atorvastatin Calcium [Lipitor] 80 mg PO BEDTIME 08/26/15 Dexamethasone 4 mg PO DAILY 03/21/17 Gabapentin 300 mg PO TID 03/21/17 Levothyroxine Sodium 50 mcg PO DAILY 03/21/17 Tbo-Filgrastim [Granix] 300 mcg SC BIW 03/21/17 Cholecalciferol [Eql Vitamin D3] 1,000 unit PO DAILY 04/11/17 Cyanocobalamin [Vitamin B-12] 1,000 mcg SL DAILY 04/11/17 Furosemide 20 mg PO DAILY 04/11/17 Isosorbide Mononitrate [Isosorbide Mononitrate ER] 30 mg PO DAILY 04/11/17 Magnesium Oxide (mg Supplement [Magnesium Oxide] 400 mg PO DAILY 04/11/17 Prednisone [Deltasone] 20 mg PO WKLY 04/20/17 Additional Instructions: Follow up with your oncologist 25 January 2018 call for your appointment;Continue with all home medications
--- NOTE | 2018-01-24 16:31 | RAD ---
EXAM DESCRIPTION: Chest,1 View CLINICAL HISTORY: 72 years Male, feeling weak COMPARISON: April 20, 2017 TECHNIQUE: AP portable chest. FINDINGS: A single view of the chest demonstrates minor atelectasis in the right infrahilar region and a chemotherapy port remaining in satisfactory position. Catheter tip is in the distal superior vena cava. Heart size is normal with tortuous aorta and normal vascularity, allowing for portable technique no dense infiltrates are noted. Vascular calcifications in the aorta. IMPRESSION: Subsegmental atelectasis in the right infrahilar region and to a lesser extent on the left. Stable position of right subclavian chemotherapy port. Electronically signed by: Angel Gamez MD 01/24/2018 4:30 PM CDT
[2018-01-24] MEDS ORDERED: SODIUM CHLORIDE 0.9% 500ML 500 ML ONE (17:58)
[2018-01-24] MEDS ORDERED: ACETAMINOPHEN 500 MG TAB PO ONE (18:00)
[2018-01-24] MEDS ORDERED: diphenhydrAMINE HCL 25 MG CAP PO ONE (18:00)
[2018-01-24] MEDS ORDERED: SODIUM CHLORIDE 0.9% 500ML 500 ML IVS PRN (18:09)
[2018-01-24 22:33] VITALS: TEMP 97.9
[2018-01-24] MEDS ORDERED: HEPARIN SODIUM 100 U/ML 5 ML SYG IV ONE (23:28)
[2018-01-24 23:30] VITALS: BP 128/65; O2SAT 99
== END 2018-01-24 23:46 | disposition home or self-care (01) ==
LOC: ER 13:49
DX: D61.810 Antineoplastic chemotherapy induced pancytopenia (principal); T45.1X5A Adverse effect of antineoplastic and immunosuppressive drugs, initial encounter; C90.00 Multiple myeloma not having achieved remission; I10 Essential (primary) hypertension; Z98.61 Coronary angioplasty status; Z79.899 Other long term (current) drug therapy
CPT/HCPCS: 36415; 71045; 80053; 81001; 83605; 85025; 86850; 86900; 86901; 86922; J1642; J7040; P9016; Q0163

== ENCOUNTER 2018-01-26 11:36 | Outpatient (CLI) | payer MEDICARE, OTHER ==
[2018-01-26] MEDS ORDERED: diphenhydrAMINE HCL 50 MG/ML VIAL IV ONE (11:55)
[2018-01-26] MEDS ORDERED: ACETAMINOPHEN 325 MG TAB PO ONE (11:55)
[2018-01-26] MEDS ORDERED: SODIUM CHLORIDE 0.9% 500ML 500 ML IVS SCH (12:00)
[2018-01-26] MEDS ORDERED: HEPARIN SODIUM 100 U/ML 5 ML SYG IV ONE (22:03)
[2018-01-26 22:37] VITALS: BP 108/50; TEMP 98.3; O2SAT 94
== END 2018-01-26 22:38 | disposition home or self-care, planned readmission (81) ==
LOC: TXRM 11:36
PROVIDERS: ATTEND Family Medicine
DX: C90.00 Multiple myeloma not having achieved remission (principal)
CPT/HCPCS: 36415; 86850; 86900; 86901; 86922; G0463; J1200; J1642; J7040; P9016

== ENCOUNTER 2018-02-04 09:37 | Outpatient (CLI) | payer MEDICARE, OTHER ==
[~2018-02-04 09:37] MED LIST changes: +ACETAMINOPHEN 325 MG TAB ONE; -ACETAMINOPHEN 325 MG TAB PO ONE; -SODIUM CHLORIDE 0.9% (FLUSH) 10 ML SYG IV ONE; -SODIUM CHLORIDE 0.9% 500 ML BAG IVS ONE; +diphenhydrAMINE HCL 25 MG CAP ONE; -diphenhydrAMINE HCL 25 MG CAP PO ONE
[2018-02-04] MEDS ORDERED: SODIUM CHLORIDE 0.9% 500ML 500 ML IVS ONE (09:38)
[2018-02-04 14:39] VITALS: BP 114/58; TEMP 96.7; O2SAT 96
== END 2018-02-04 14:40 | disposition home or self-care (01) ==
LOC: AMB 09:37
PROVIDERS: ATTEND Internal Medicine Medical Oncology
DX: C90.02 Multiple myeloma in relapse (principal)
CPT/HCPCS: 36415; 86850; 86900; 86901; 86922; G0463; J1642; J7040; P9016; Q0163